=== PATIENT | female | born 1970 | race Hispanic/Latino ===

== ENCOUNTER → 2018-10-31 | Outpatient (CLI) | payer BC ==
[~2018-10-31] MED LIST: REGADENOSON 0.4 MG/5 ML SYR IV ONE
--- NOTE | 2018-11-02 12:35 | Cardiology Report ---
DATE OF STUDY: PROCEDURE INDICATION: Chest pain and abnormal EKG with nonspecific repolarization abnormalities. INTERPRETATION: At rest heart rate was 69, blood pressure 132/84. Resting EKG shows normal sinus rhythm with nonspecific repolarization abnormalities. After Lexiscan was administered, heart rate mildred to 118 beats per minute, blood pressure decreased to 126/85. There were no significant ST changes or arrhythmias throughout stress or recovery. Myocardial perfusion reveals normal rest and stress perfusion. Gated images demonstrate hyperdynamic left ventricular systolic function, normal regional wall motion, and left ventricular ejection fraction more than 70%. CONCLUSION 1. Normal hemodynamic response to Lexiscan stress. 2. Normal electrocardiographic response to Lexiscan stress. 3. Normal myocardial perfusion at rest and stress. 4. Hyperdynamic left ventricular systolic function with left ventricular ejection fraction more than 70%. Job#: [id number]
== END ==
LOC: NM 08:40
PROVIDERS: ATTEND Internal Medicine Cardiovascular Disease
DX: R07.9 Chest pain, unspecified (principal)
CPT/HCPCS: 78452; 93017; A9502; J2785

== ENCOUNTER → 2022-08-08 | Day surgery (SDC) | payer BC ==
[~2022-08-08] MED LIST changes: +ATORVASTATIN CA20 MG PO; +HYOSCYAMINE SULFATE 0.5 MG/ML INJ ONE; +OMEGA 3 1,0001 EACH PO; +PROPOFOL IV EMULSION 10 MG/ML 20 ML VIAL ONE; -REGADENOSON 0.4 MG/5 ML SYR IV ONE
[2022-08-08 10:10] VITALS: BP 111/79
== END | disposition home or self-care (01) ==
LOC: OR 08:31
PROVIDERS: ATTEND Internal Medicine Gastroenterology
DX: Z12.11 Encounter for screening for malignant neoplasm of colon (principal); K57.30 Diverticulosis of large intestine without perforation or abscess without bleeding; K64.8 Other hemorrhoids; Z71.3 Dietary counseling and surveillance; E78.00 Pure hypercholesterolemia, unspecified; Z01.810 Encounter for preprocedural cardiovascular examination; Z79.899 Other long term (current) drug therapy; Z68.34 Body mass index [BMI] 34.0-34.9, adult
CPT/HCPCS: 45378; 93005; J1980